=== PATIENT | female | born 1930 | race Asian ===

== ENCOUNTER → 2016-04-13 | Outpatient (CLI) | payer MEDICARE, OTHER | LOC: WI 07:18 | PROVIDERS: ATTEND Internal Medicine | DX: Z12.31 Encounter for screening mammogram for malignant neoplasm of breast (principal); M81.0 Age-related osteoporosis without current pathological fracture | CPT/HCPCS: 77080; G0202; 77067 ==

== ENCOUNTER → 2016-06-29 | Outpatient (CLI) | payer MEDICARE, OTHER | LOC: RAD 11:45 | PROVIDERS: ATTEND Physician Assistant | DX: R51 Headache (principal) | CPT/HCPCS: 70450 ==